=== PATIENT | male | born 1960 | race Caucasian/White ===

== ENCOUNTER 2023-01-24 08:34 | Outpatient (CLI) | payer BC, SELFPAY | END 2023-01-24 08:35 | disposition home or self-care (01) | PROVIDERS: Visit Provider Nurse Practitioner Family | DX: Z00.00 Encounter for general adult medical examination without abnormal findings (principal); I10 Essential (primary) hypertension; E10.9 Type 1 diabetes mellitus without complications; Z51.81 Encounter for therapeutic drug level monitoring; Z12.5 Encounter for screening for malignant neoplasm of prostate; Z13.6 Encounter for screening for cardiovascular disorders; Z13.29 Encounter for screening for other suspected endocrine disorder | CPT/HCPCS: 80053; 80061; 82043; 82570; 84443 ==

== ENCOUNTER 2023-07-27 08:52 | Outpatient (CLI) | payer BC, SELFPAY | END 2023-07-27 08:53 | disposition home or self-care (01) | LOC: KYNREF 08:52 | PROVIDERS: PCP Nurse Practitioner Family; Visit Provider Nurse Practitioner Family | DX: Z51.81 Encounter for therapeutic drug level monitoring (principal) | CPT/HCPCS: 80076 ==

== ENCOUNTER 2024-01-25 08:37 | Outpatient (CLI) | payer BC, SELFPAY | END 2024-01-25 08:38 | disposition home or self-care (01) | PROVIDERS: PCP Nurse Practitioner Family; Visit Provider Nurse Practitioner Family | DX: I10 Essential (primary) hypertension (principal); E10.9 Type 1 diabetes mellitus without complications; Z13.6 Encounter for screening for cardiovascular disorders | CPT/HCPCS: 80053; 80061; 82043; 82570; 82607; 84443; G0103 ==

== ENCOUNTER 2025-01-10 09:35 | Outpatient (CLI) | payer BC, SELFPAY | END 2025-01-10 09:36 | disposition home or self-care (01) | PROVIDERS: PCP Nurse Practitioner Family; Visit Provider Physician Assistant | DX: R52 Pain, unspecified (principal); R53.83 Other fatigue; I10 Essential (primary) hypertension; R61 Generalized hyperhidrosis; Z11.9 Encounter for screening for infectious and parasitic diseases, unspecified | CPT/HCPCS: 84443; 86140; 86618; 87468; 87469; 87484; 87798 ==

== ENCOUNTER 2025-01-27 09:09 | Outpatient (CLI) | payer BC, SELFPAY | END 2025-01-27 09:10 | disposition home or self-care (01) | PROVIDERS: PCP Nurse Practitioner Family; Visit Provider Nurse Practitioner Family | DX: E10.9 Type 1 diabetes mellitus without complications (principal); I10 Essential (primary) hypertension; Z12.5 Encounter for screening for malignant neoplasm of prostate; Z13.21 Encounter for screening for nutritional disorder | CPT/HCPCS: 80053; 80061; 82043; 82570; 82607; 85025; G0103 ==

== ENCOUNTER 2025-03-31 16:15 | Outpatient (CLI) | payer BC, SELFPAY | END 2025-03-31 16:16 | disposition home or self-care (01) | PROVIDERS: PCP Nurse Practitioner Family; Visit Provider Nurse Practitioner Family | DX: E10.9 Type 1 diabetes mellitus without complications (principal); Z13.0 Encounter for screening for diseases of the blood and blood-forming organs and certain disorders involving the immune mechanism | CPT/HCPCS: 82728; 83540; 83550; 85025; 85045 ==

== ENCOUNTER 2025-05-26 08:00 | Outpatient (CLI) | payer BC, SELFPAY | END 2025-05-26 08:01 | disposition home or self-care (01) | LOC: NFLDREF 05-28 14:03 | PROVIDERS: PCP Nurse Practitioner Family; Referring Provider Nurse Practitioner Family; Visit Provider Nurse Practitioner Family | DX: D64.9 Anemia, unspecified (principal) | CPT/HCPCS: 85025 ==